=== PATIENT | male | born 1980 | race Caucasian/White ===

== ENCOUNTER → 2018-09-20 18:13 | Outpatient (CLI) | payer OTHER, SELFPAY ==
--- NOTE | 2018-09-20 18:17 | DI.MRI.S_ITS ---
PROCEDURE: MR KNEE LT WO CON INDICATIONS: PAIN LEFT KNEE TECHNIQUE: Noncontrast sagittal PD fast spin echo and T2 fast spin echo with fat saturation, sagittal 3-D FLASH with fat saturation; coronal T1 spin echo and PD fast spin echo with fat saturation, and axial PD fast spin echo with fat saturation through the knee. COMPARISON: [facility], MR, KNEE WITHOUT CONTRAST, 05/04/2017, 16:10. FINDINGS: Image quality: Excellent. Menisci: The medial and lateral menisci demonstrate normal morphology and internal signal. The meniscal root ligaments appear intact. Cruciate ligaments: The anterior and posterior cruciate ligaments appear intact. Medial structures: Sprain/low-grade partial-thickness tear involving medial collateral ligament is seen. The posterior oblique ligament, semimembranosus tendon insertions, oblique popliteal ligament, and meniscocapsular junction appear intact. Visualized portions of the pes anserinus tendons appear normal. No abnormal bursal fluid. Lateral structures: The lateral collateral ligament, long and short heads of the biceps femoris tendon appear intact. The popliteus tendon appears normal; the popliteofibular ligament appears intact. The posterosuperior and anteroinferior popliteomeniscal fascicles appear intact. The arcuate and fabellofibular ligaments appear intact, on either side of the lateral inferior geniculate artery. Iliotibial band appears normal. Anterior structures: The quadriceps and patellar tendons appear intact. Patellar alignment is normal. No femoral trochlear dysplasia or ventral trochlear prominence. No edema in the infrapatellar fat pad. Bones and cartilage: No bone marrow contusions or fractures. The cartilage of the medial and lateral femorotibial compartments appears normal in thickness. There is chondromalacia involving lateral facet of patella cartilage with underlying 4 x 2 mm osteochondral lesion and mild edema involving lateral portion of posterior patella. Joint space: There is physiologic knee joint fluid. No Moscoso's cyst. Normal appearing synovial plicae are incidentally noted. IMPRESSION: 1. Low to moderate grade MCL sprain/partial thickness tear. Cruciate ligaments are intact. 2. No evidence of focal meniscal tear. 3. 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 No fracture or dislocation. Trace amount of joint effusion. Dictated by: Louie Horner M.D. on 09/21/2018 at 11:47 Approved by: Louie Horner M.D. on 09/21/2018 at 11:58
== END ==
DX: M25.562 Pain in left knee (principal); S83.412A Sprain of medial collateral ligament of left knee, initial encounter; M22.42 Chondromalacia patellae, left knee; M89.9 Disorder of bone, unspecified
CPT/HCPCS: 73721